=== PATIENT | female | born 1965 | race Caucasian/White ===

== ENCOUNTER 2018-05-23 10:13 | Emergency (ER) | payer OTHER ==
[2018-05-23 10:24] VITALS: RESP 18
--- NOTE | 2018-05-23 11:47 | ED ---
General Adult HPI - General Chief complaint: Fall Stated complaint: Fall Time Seen by Provider: 05/23/18 10:44 Source: patient, RN notes reviewed Mode of arrival: ambulatory Limitations: no limitations - History of Present Illness Initial comments: Patient 52-year-old female presented to the emergency room today with chief complaint of a fall that occurred approximate hour prior to arrival. Patient does admit that she was walking her dog when it sauce oral and began to pull her. States had pulled her into a fence. She does admit to pain over the nose , right wrist, left knee. Patient does admit that she has a abrasion over the bridge of the nose and it was some bleeding but has stopped. She states that her tetanus is up-to-date. She states was no loss conscious. Denies any headache. Denies any nausea vomiting. Denies any back pain, abdominal pain, chest pain, shortness of breath. - Related Data Allergies Allergy/AdvReac Type Severity Reaction Status Date / Time Penicillins Allergy Anaphylaxis Verified 05/23/18 10:24 Review of Systems ROS Statement: Those systems with pertinent positive or pertinent negative responses have been documented in the HPI. ROS Other: All systems not noted in ROS Statement are negative. Past Medical History Additional Past Medical History / Comment(s): pulmonary stenosis, History of Any Multi-Drug Resistant Organisms: None Reported Past Surgical History: Hernia Repair Additional Past Surgical History / Comment(s): nasal surgery for deviated septum , kidney surger as a child Past Psychological History: No Psychological Hx Reported Smoking Status: Never smoker Past Alcohol Use History: Occasional Past Drug Use History: None Reported General Exam - General Exam Comments Initial Comments: General: The patient is awake and alert, in no distress, and does not appear acutely ill. Eye: Pupils are equal, round and reactive to light, extra-ocular movements are intact. No nystagmus. There is normal conjunctiva bilaterally. No signs of icterus. Ears, nose, mouth and throat: Patient does have tenderness over the nasal bridge. No septal hematoma. Neck: The neck is supple, there is no tenderness or JVD. Cardiovascular: There is a regular rate and rhythm. No murmur, rub or gallop is appreciated. Respiratory: Lungs are clear to auscultation, respirations are non-labored, breath sounds are equal. No wheezes, stridor, rales, or rhonchi. Musculoskeletal: Full range motion of all extremities. Patient does have some tenderness over the anterior aspect of the left knee over the patella. Patient does have some tenderness over the distal radius and ulna on the right. No other bony tenderness. Strength 5/5. Sensation intact. Pulses equal bilaterally 2+. Neurological: A&O x 3. CN II-XII intact, There are no obvious motor or sensory deficits. Coordination appears grossly intact. Speech is normal. Skin: Skin is warm and dry and no rashes or lesions are noted. Psychiatric: Cooperative, appropriate mood & affect, normal judgment. Limitations: no limitations Course Vital Signs 05/23/18 10:20 Temperature 97.8 F Pulse Rate 75 Respiratory 18 Rate Blood Pressure 134/78 O2 Sat by Pulse 100 Oximetry Medical Decision Making - Medical Decision Making X-rays reviewed and are negative. Results were discussed with patient. Patient is advised to ice elevate the affected areas use ibuprofen for pain. Advised to return to emergency room if any symptoms increase worsen or for any other concerns. Disposition Clinical Impression: Nasal contusion, Knee contusion, Wrist sprain Disposition: HOME SELF-CARE Condition: Good Instructions: Contusion in Adults (ED) Additional Instructions: Please use ibuprofen for pain as needed. Please follow-up with family doctor in the next 2 days of symptoms have not improved. Please return to emergency room if the symptoms increase or worsen or for any other concerns. Is patient prescribed a controlled substance at d/c from ED?: No Referrals: Nonstaff,Physician [Primary Care Provider] - 1-2 days Time of Disposition: 12:39
--- NOTE | 2018-05-23 12:17 | XR ---
EXAMINATION TYPE: XR knee 4V LT DATE OF EXAM: 05/23/2018 COMPARISON: None HISTORY: Pain from fall TECHNIQUE: 4 view left knee FINDINGS: Minimal narrowing of the medial lateral compartment joint spaces may be present. No acute f ractures are evident. No joint effusion is evident. Patellofemoral joint space appears preserved. Follow-up exam can be performed 7-10 days from acute trauma for continued pain. IMPRESSION: 1. No acute osseous abnormality
--- NOTE | 2018-05-23 12:18 | XR ---
EXAMINATION TYPE: XR wrist complete RT DATE OF EXAM: 05/23/2018 COMPARISON: None HISTORY: Pain from fall TECHNIQUE: 4 view right wrist FINDINGS: No acute displaced fractures are evident. Soft tissues appear normal. If there is pain at the anatomic snuff box, nuclear medicine bone scan could be performed for additio nal evaluation. Follow-up exams can be performed 7-10 days from acute trauma for continued pain. IMPRESSION: 1. Normal 4 view right wrist
--- NOTE | 2018-05-23 12:19 | XR ---
EXAMINATION TYPE: XR nasal bone DATE OF EXAM: 05/23/2018 COMPARISON: None HISTORY: Fall, pain TECHNIQUE: 3 view nasal bones FINDINGS: Nasal bones are examined in 3 projections. No acute fractures are evident. Paranasal sinuse s within the [id number] are clear. IMPRESSION: 1. Normal nasal bone.
[2018-05-23 12:54] VITALS: BP 118/98; PULSE 66; TEMP 98.1
== END 2018-05-23 12:48 | disposition home or self-care (01) ==
LOC: EC 10:13
DX: S63.501A Unspecified sprain of right wrist, initial encounter (principal); S80.02XA Contusion of left knee, initial encounter; S00.33XA Contusion of nose, initial encounter; Z88.0 Allergy status to penicillin; W19.XXXA Unspecified fall, initial encounter; Y93.K1 Activity, walking an animal
CPT/HCPCS: 70160; 99283